=== PATIENT | male | born 1980 | race Caucasian/White ===

== ENCOUNTER 2020-08-19 08:01 | Emergency (ER) | payer OTHER ==
[~2020-08-19] VITALS: Ht 175.3 cm; Wt 108.9 kg
[~2020-08-19 08:01] MED LIST: AMOX500 PO; DIAZ5; DIAZ5 PO; HYDACE5 PO; HYDACE5325; IBUP800 PO; NAPR500; RXHYDACE PO; TRAM50
[2020-08-19] MEDS ORDERED: NAPROXEN250 M1 PO (08:40)
== END 2020-08-19 08:53 | disposition home or self-care (01) ==
LOC: ER 08:01
DX: M25.511 Pain in right shoulder (principal); R20.0 Anesthesia of skin; F17.210 Nicotine dependence, cigarettes, uncomplicated
CPT/HCPCS: 99283

== ENCOUNTER 2023-02-12 20:34 | Emergency (ER) | payer OTHER ==
[~2023-02-12] VITALS: Ht 175.3 cm; Wt 99.8 kg
[~2023-02-12 20:34] MED LIST changes: +NAPROXEN250 M1 PO
[2023-02-12 20:51] VITALS: BP 136/69
== END 2023-02-12 21:40 | disposition home or self-care (01) ==
LOC: ER 20:34
DX: S61.412A Laceration without foreign body of left hand, initial encounter (principal); F41.9 Anxiety disorder, unspecified; F17.200 Nicotine dependence, unspecified, uncomplicated; W26.0XXA Contact with knife, initial encounter
CPT/HCPCS: 12001; 90471; 90714; 99282-25

== ENCOUNTER 2024-06-16 21:58 | Emergency (ER) | payer OTHER ==
[~2024-06-16] VITALS: Ht 175.3 cm; Wt 113.4 kg
[2024-06-16 22:21] VITALS: BP 152/98
== END 2024-06-16 23:57 | disposition home or self-care (01) ==
LOC: ER 21:58
DX: S60.221A Contusion of right hand, initial encounter (principal); M25.552 Pain in left hip; F17.200 Nicotine dependence, unspecified, uncomplicated; W22.8XXA Striking against or struck by other objects, initial encounter
CPT/HCPCS: 73130; 99283-25